=== PATIENT | male | born 1985 | race Asian ===

== ENCOUNTER 2022-02-20 15:17 | Emergency (ER) | payer OTHER ==
[~2022-02-20] VITALS: Ht 177.8 cm; Wt 85.0 kg
[2022-02-20] MEDS ORDERED: MAGNESIUM/ALUMINUM HYDROXIDE/SIMETHICONE 30ML UDC PO STA (17:36)
[2022-02-20] MEDS ORDERED: KETOROLAC 30MG/ML VIAL IV STA (17:36)
[2022-02-20] MEDS ORDERED: ONDANSETRON HCL 4MG/2ML INJ IV STA (17:36)
[2022-02-20] MEDS ORDERED: PANTOPRAZOLE SODIUM 40 MG/VIAL IV STA (17:36)
[2022-02-20] MEDS ORDERED: VISCOUS LIDOCAINE 2% 15 ML UDC PO STA (17:36)
[2022-02-20] MEDS ORDERED: SODIUM CHLORIDE 0.9% 1,000 ML IV ONE (17:45)
[2022-02-20 18:03] LABS: BASOPHILS % 0.1 % (0.0-2.0); EOSINOPHILS % 0.5 % (0.0-5.0); HEMATOCRIT. 41.5 % (42.0-52.0); HEMOGLOBIN. 13.1 g/dL (14.0-18.0); LYMPHOCYTES % 8.5 % (20.0-50.0); MEAN CORPUSCULAR HEMOGLOBIN 19.7 pg (28.0-32.0); MEAN CORPUSCULAR VOLUME 62.3 fL (80.0-94.0); MEAN PLATELET VOLUME 8.8 fl (7.4-10.4); MONOCYTES % 7.2 % (2.0-8.0); NEUTROPHILS % 83.7 % (40.0-76.0); PLATELET 248 x1000/uL (130-400); RED BLOOD CELL COUNT 6.67 mill/uL (4.7-6.1); RED CELL DISTRIBUTION WIDTH 15.7 % (11.6-14.6)
[2022-02-20 18:06] LABS: CHLORIDE 103 mEq/L (98-107)
[2022-02-20 18:14] LABS: CLARITY URINE CLEAR (CLEAR); COLOR URINE YELLOW (YELLOW); KETONES URINE TRACE (NEGATIVE); LEUKOCYTE ESTERASE URINE 2+ (NEGATIVE); NITRITE URINE NEGATIVE (NEGATIVE); OCCULT BLOOD URINE NEGATIVE (NEGATIVE); PROTEIN URINE NEGATIVE (NEGATIVE); SPECIFIC GRAVITY URINE 1.019 (1.005-1.030); UROBILINOGEN URINE 0.2 E.U./dL (0.2-1.0)
[2022-02-20 18:16] LABS: ETHANOL BLOOD < 10 mg/dL
[2022-02-20 18:25] LABS: PLATELET ESTIMATE NORMAL
[2022-02-20 18:25] LABS: *AMPHETAMINES SCREEN URINE NEGATIVE (NEGATIVE); *BARBITURATES SCREEN URINE NEGATIVE (NEGATIVE); *BENZODIAZEPINES SCREEN URINE NEGATIVE (NEGATIVE); *COCAINE SCREEN URINE NEGATIVE (NEGATIVE); CANNABINOID URINE SCREEN NEGATIVE (NEGATIVE); METHADONE URINE SCREEN NEGATIVE (NEGATIVE); OPIATES URINE SCREEN NEGATIVE (NEGATIVE); PHENCYCLIDINE URINE SCREEN NEGATIVE (NEGATIVE)
[2022-02-20] MEDS ORDERED: METRONIDAZOLE 500 MG PREMIX 100 ML IV NR (20:15)
[2022-02-20] MEDS ORDERED: CEFTRIAXONE 1 G PREMIX 50 ML IV NR (20:15)
[2022-02-20] MEDS ORDERED: IBUP-2029 MT (20:31)
[2022-02-20] MEDS ORDERED: CEPH500C2 MT (20:31)
[2022-02-20 21:30] VITALS: BP 132/80
== END 2022-02-20 21:45 | disposition left against medical advice (07) ==
LOC: ER 15:17
DX: R82.81 Pyuria (principal); Z53.21 Procedure and treatment not carried out due to patient leaving prior to being seen by health care provider; Z13.9 Encounter for screening, unspecified
CPT/HCPCS: 36415; 74176; 80053; 80305; 80320; 81003; 83690; 85025; 87086; 96361; 96374; 96375; 99284; C9113; J1885; J2405; J7030; G0480